=== PATIENT | female | born 1940 | race Caucasian/White ===

== ENCOUNTER → 2016-06-26 | Outpatient (CLI) | payer MEDICARE, BC ==
--- NOTE | 2016-06-26 18:40 | RADRPT ---
PROCEDURE: XR Right hip and pelvis. CLINICAL INDICATION: Right hip pain. Pelvic pain. TECHNIQUE: Two views. Frontal pelvis and lateral right hip. COMPARISON: No prior studies are available for comparison. FINDINGS: There is no fracture or dislocation. The soft tissues are normal. The right hip is normal. The left hip is grossly normal. There is no lytic or blastic lesion. Surgical clips are present in the right side of the pelvis and soft tissues of the left lower extrem ity medially. IMPRESSION: 1. Unremarkable hips. 2. Prior surgery with surgical clips noted. RPTAT: QQ .Aristides Rios MD, MD Date Time Electronically viewed and signed by .Aristides Rios MD, on 06/26/2016 18:39 .R/
--- NOTE | 2016-09-03 13:24 | HKNOTE ---
DATE OF SERVICE: 06/26/2016 REFERRING PHYSICIAN: Dr. Amilcar Pinto MAIN COMPLAINT: Pain in the right hip. HISTORY OF MAIN COMPLAINT: The patient is a 75-year-old female who complains of pain in her right h ip. The patient has previously been seen by Dr. Delaney for both of her knees. She now complains of pain in the right hip. The pain that has been present for about 4 weeks. There has not been any history of injury. The pa in is localized over the greater trochanter. There is some radiation down the lateral aspect of the right thigh when she is walking. Dictated By: LEATHA DURANT/NTS Conf#: [id number] DID#: [id number] CC: AMILCAR PINTO MD;*End*
== END | disposition home or self-care (01) ==
LOC: HKI 14:39
DX: M25.551 Pain in right hip (principal)
CPT/HCPCS: 73502; G0463

== ENCOUNTER → 2018-07-08 | Outpatient (CLI) | payer MEDICARE, BC ==
--- NOTE | 2018-07-08 16:03 | CONS ---
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 At this time she is not interested in discussing surgery. She would like to try injection therapy. This is reasonable. Plan: Steroid injection right knee Physical therapy for quad atrophy Ice Low-impact activity Assessment/Plan (Daily) Right knee steroid injection procedure: Risks and benefits of steroid injection reviewed with patient. The risks include infection, failure, pain, swelling, nerve/tendon/ligament damage. The patient verbalized understanding and verbal consent was obtained prior to procedure. The right knee was prepped in a sterile fashion with alcohol and betadine the site of injection was confirmed. Lateral approach was used. The skin and capsule was anesthetized with 3mL 1% lidocaine. The right knee was injected with 2mL 1% lidocaine, 2mL 0.25% bupivacaine, 40mg Depo-Medrol. Injection flowed freely. Good hemostasis was achieved and no complications noted. The patient tolerated the procedure well. Limit activity and ice for 24-48 hours Consultation Date/Type/Reason Admit Date/Time Date of Consultation: Jul 08, 2018 Reason for Consultation Right knee pain Date/Time of Note DATE: 07/08/18 TIME: 15:35 Hx of Present Illness This Is a 77-year-old female with a chief complaint of right knee pain. The pain began approximately years ago. The patients pain is in the anterior greater than medial aspect of the right knee. Pain is not radiating to the lower leg. The pain is rated as a 78/10. Patient denies complaints of numbness or tingling. The pain is exacerbated by climbing stairs and ambulation. The patient has had Visco supplementation injections in the distant past. These have helped. Duration: years Injury: No Walking tolerance: Unlimited if flat ground. Limp: No Support: No Swelling: Yes Crepitation: Yes Instability: No Stairs: Uses banister Physical Therapy: No Injections: Visco supplementation injection years ago NSAIDs: Contraindicated secondary to cardiac disease Prior surgery: No Back pain: Sometimes Hip pain: No Risk of AVN : No Patient denies fever, chills, shortness of breath, chest pain, nausea/vomiting, constipation, diarrhea, numbness, and tingling. Past Medical History Melanoma Angina hypertension UTIs Past Surgical History Excision of melanoma Coronary artery stent Social History Alcohol Use: occasionally (3 drinks a week) Smoking Status: Never smoker Drug Use: none Exam/Review of Systems Exam Vitals Weight: 140 pound Height: 5 feet 4 inches Temperature: 98.4 Heart Rate: 60 Blood Pressure: 190/91 Respiratory Rate: 14 Exam General: Alert, oriented x3. No Acute Distress. Heart: Regular rate and rhythm. Lungs: No respiratory distress. No accessory muscle use. Musculoskeletal: Right Knee This is a well developed female who is alert, oriented times three and in no apparent distress. Skin is intact over the right knee as well as the lower extremity with no abrasions, lacerations, or ulcerations. Observation of the patient's gait reveals an antalgic gait with Varus thrust. Frontal plane alignment is severe varus. There is significant quad atrophy. There is pain on palpation of medial joint line. The patient demonstrates grinding anteriorly with ROM. Range of motion: 5 extension to approximately 130 degrees of flexion. Collateral ligament testing reveals no instability with varus or valgus stress at 0 and 30 degrees of flexion. Negative Sravan's and negative posterior drawer. Neurovascularly intact with 5/5 EHL/tibialis anterior/gastroc. Sensation intact to light touch in a sural, saphenous, deep peroneal, superficial peroneal, medial and lateral plantar nerve distribution. Palpable, symmetric dorsalis pedis and posterior tibial pulses in both lower extremities. Hip examination normal. Imaging Imaging The patient received a standard set of films today that were personally reviewed. Imaging included a standing bilateral knee AP, PA flexion, merchant views and a dedicated lateral of the affected knee: There is varus alignment of the knee. There is complete loss of joint space in the medial compartment and moderate loss of joint space patellofemoral compartment(s). There is osteophyte formation. There is subchondral sclerosis. There are subchondral cysts. Degenerative changes are most severe in the medial and patellofemoral compartment(s) NORMA LEY MD Jul 08, 2018 15:45
--- NOTE | 2018-07-10 06:13 | RADRPT ---
PROCEDURE: Bilateral knee series CLINICAL INDICATION: Pain TECHNIQUE: AP weightbearing, lateral weightbearing, PA weightbearing and sunrise views were obtaine d of the right left knees. 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 No evidence of acute fractures or dislocations. No focal bony blastic or lytic l esions. No evidence of right or left knee joint effusions. The soft tissues are otherwise unremarkabl e. 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 RPTAT:AAJJ Physician Katie Date Time Electronically viewed and signed by Yusuf Diaz Physician on 07/10/2018 06:13 /
== END | disposition home or self-care (01) ==
LOC: HKI 14:32
PROVIDERS: ATTEND Orthopaedic Surgery Adult Reconstructive Orthopaedic Surgery
DX: M13.861 Other specified arthritis, right knee (principal)
CPT/HCPCS: 20610; 73564; G0463